=== PATIENT | male | born 1955 | race Caucasian/White ===

== ENCOUNTER 2022-08-08 07:12 | Day surgery (SDC) | payer MEDICARE, OTHER ==
[~2022-08-08 07:12] MED LIST: Acetaminophen 325 MG Tab PO SCH; Lactated Ringers 1,000 ML IV SCH; Lidocaine 1%/Sod Bicarbonate in NS 8.4% 1 ML Syringe IDERM PRN; Pregabalin 25 MG Cap PO SCH; Sodium Chloride 0.9% 10 ML Syringe FLUSH PRN; Sodium Chloride 0.9% 10 ML Syringe FLUSH SCH; oxyCODONE ER 10 MG TAB.ER PO SCH
[2022-08-08] MEDS ORDERED: Lidocaine 1% 2 ML ONE (07:20)
[2022-08-08] MEDS ORDERED: Propofol 200 MG/20 ML SDV ONE (07:21)
[2022-08-08] MEDS ORDERED: fentaNYL 100 MCG/2 ML SDV ONE (07:21)
[2022-08-08] MEDS ORDERED: Midazolam 1 MG/ML 2 ML SDV ONE (07:21)
[2022-08-08] MEDS ORDERED: Ondansetron 4 MG/2 ML SDV IVPUSH PRN (07:41)
[2022-08-08] MEDS ORDERED: HYDROmorphone 0.5 MG/0.5 ML Syringe IVPUSH PRN (07:41)
[2022-08-08] MEDS ORDERED: fentaNYL 100 MCG/2 ML SDV IVPUSH PRN (07:41)
[2022-08-08] MEDS ORDERED: EPINEPHrine 1 MG/ML SDV ONE (08:32)
[2022-08-08] MEDS ORDERED: Ropivacaine 0.5% 5 MG/ML 30 ML SDV ONE (08:32)
[2022-08-08] MEDS ORDERED: Phenylephrine 1% 10 MG/ML SDV ONE (09:18)
[2022-08-08] MEDS ORDERED: ceFAZolin 2 GM Vial ONE (09:18)
[2022-08-08] MEDS: Tranexamic Acid 1,000 MG/10 ML Vial ONE ×2 (09:50→10:20)
[2022-08-08] MEDS: Bupivacaine 0.25% 10 ML SDV ONE ×2 (09:50→10:35)
[2022-08-08] MEDS: Triamcinolone Acetonide 40 MG/ML 1 ML SDV ONE ×2 (09:50→10:35)
[2022-08-08] MEDS: Vancomycin 1 GM SDV ONE ×2 (09:50→10:20)
[2022-08-08] MEDS: Morphine 8 MG, EPINEPHrine 0.3 MG, Cefuroxime 750 MG, Ketorolac 30 MG, Sodium Chloride ... PRN ×10 (09:51→10:13)
[2022-08-08] MEDS ORDERED: Ketorolac 30 MG/ML SDV ONE (10:19)
[2022-08-08] MEDS ORDERED: oxyCODONE 5 MG Tab PO ONE (13:40)
== END 2022-08-08 13:34 | disposition home or self-care (01) ==
LOC: JD.SDS 07:12
PROVIDERS: ATTEND Orthopaedic Surgery
DX: M17.0 Bilateral primary osteoarthritis of knee (principal); Z88.0 Allergy status to penicillin; Z79.899 Other long term (current) drug therapy
CPT/HCPCS: 0555T; 20610; 27447; 64447; 73560; 97110; 97161; A9270; C1713; C1776; J0171; J0690; J0697; J1885; J2250; J2270; J2370; J2704; J2795; J3010; J3301; J3370; J3490; J7120; 01402